=== PATIENT | female | born 1985 | race Caucasian/White ===

== ENCOUNTER 2016-10-06 19:44 | Emergency (ER) | payer OTHER ==
[2016-10-06] MEDS ORDERED: LORAZEPAM 0.5 MG TAB PO ONE ×2 (20:33→21:12)
[2016-10-06] MEDS ORDERED: LORAZEPAM 0.5 MG TAB ONE ×2 (20:35→21:23)
[2016-10-06 21:41] VITALS: TEMP 99.7
[2016-10-06 22:16] VITALS: BP 127/74; PULSE 79; RESP 16; O2SAT 95
== END 2016-10-06 21:58 | disposition home or self-care (01) ==
LOC: ED 19:44
DX: R00.2 Palpitations (principal); F41.9 Anxiety disorder, unspecified
CPT/HCPCS: 99283; 99284

== ENCOUNTER 2016-10-07 16:17 | Emergency (ER) | payer OTHER ==
[2016-10-07 16:28] VITALS: RESP 18; TEMP 98.7; O2SAT 97
[2016-10-07 17:15] VITALS: BP 118/65; PULSE 93
== END 2016-10-07 17:09 | disposition home or self-care (01) ==
LOC: ED 16:17
DX: F41.9 Anxiety disorder, unspecified (principal)
CPT/HCPCS: 99282

== ENCOUNTER 2016-11-21 15:37 | Emergency (ER) | payer OTHER ==
[2016-11-21 15:56] VITALS: TEMP 97.2
[2016-11-21 16:13] VITALS: BP 127/42; PULSE 72; RESP 20; O2SAT 98
== END 2016-11-21 16:21 | disposition home or self-care (01) ==
LOC: ED 15:37
DX: F41.9 Anxiety disorder, unspecified (principal)
CPT/HCPCS: 99283

== ENCOUNTER 2018-04-16 22:25 | Emergency (ER) | payer OTHER ==
[2018-04-16 22:41] VITALS: BP 121/74; PULSE 74; RESP 18; TEMP 96.8; O2SAT 99
[2018-04-16] MEDS ORDERED: LORAZEPAM 2 MG/ML SOL IM ONE (22:44)
[2018-04-16] MEDS ORDERED: LORAZEPAM 2 MG/ML SOL ONE (22:48)
== END 2018-04-16 23:10 | disposition home or self-care (01) ==
LOC: ED 22:25
DX: F41.0 Panic disorder [episodic paroxysmal anxiety] (principal)
CPT/HCPCS: 96372; 99282; 99283; J2060

== ENCOUNTER 2018-05-03 21:30 | Emergency (ER) | payer OTHER ==
[2018-05-03] MEDS: SODIUM CHLORIDE 0.9% FLUSH 10 ML SOL IV PRN ×2 (21:40→22:40)
[2018-05-03] MEDS ORDERED: NITROGLYCERIN 0.4 MG TAB SL PRN (21:40)
[2018-05-03] MEDS ORDERED: ASPIRIN 81 MG CHEWABLE CTB PO STA (21:40)
[2018-05-03 21:41] VITALS: RESP 20; TEMP 98.2
[2018-05-03 21:44] LABS: BASOPHILS % (AUTO) 1 % (0-3); EOSINOPHILS % (AUTO) 3 % (0-9); HEMATOCRIT 38 % (35-47); HEMOGLOBIN 12.6 gm/dl (12.0-15.5); LYMPHOCYTES % (AUTO) 29.6 % (10-50); MEAN CORPUSCULAR HEMOGLOBIN 29.5 pg (27.0-32.0); MEAN CORPUSCULAR HGB CONC 33.4 gm/dl (32.0-36.0); MEAN CORPUSCULAR VOLUME 88 fL (81-99); MONOCYTES % (AUTO) 6.6 % (0-12); NEUTROPHILS % (AUTO) 59.7 % (37-80)
[2018-05-03 22:00] LABS: BLOOD UREA NITROGEN 15 mg/dl (7-18); CALCIUM 8.6 mg/dl (8.5-10.1); CHLORIDE 103 mMol/L (98-107); CREATINE KINASE 98 U/L (26-192); CREATININE 0.87 mg/dl (0.60-1.00); GLUCOSE 91 mg/dl (74-106); SODIUM 138 mMol/L (136-145); TROP I < 0.017 ng/ml (0.000-0.056)
[2018-05-03 22:06] LABS: CARBON DIOXIDE 30.7 mEq/L (21-32); POTASSIUM 3.7 mMol/L (3.5-5.1)
[2018-05-03] MEDS ORDERED: KETOROLAC TROMETHAMINE 30 MG/ML SOL IV ONE (22:23)
[2018-05-03] MEDS ORDERED: ALUMINUM/MAGNESIUM 30 ML SUS PO ONE (22:23)
[2018-05-03] MEDS ORDERED: KETOROLAC TROMETHAMINE 30 MG/ML SOL ONE (22:31)
[2018-05-03] MEDS ORDERED: LIDOCAINE HCL 2% (VISCOUS) 20 ML SOL ONE (22:31)
[2018-05-03] MEDS ORDERED: ALUMINUM/MAGNESIUM 30 ML SUS ONE (22:31)
[2018-05-03 23:08] VITALS: O2SAT 97
[2018-05-03 23:21] VITALS: BP 121/55; PULSE 67
== END 2018-05-03 23:32 | disposition home or self-care (01) ==
LOC: ED 21:30
DX: R07.89 Other chest pain (principal)
CPT/HCPCS: 80048; 82550; 84484; 85025; 93005; 96374; 99284; 99285; J1885; A9270-GY

== ENCOUNTER 2019-03-14 14:50 | Emergency (ER) | payer OTHER ==
[2019-03-14] MEDS ORDERED: SODIUM CHLORIDE 0.9% 1000ML 1,000 ML IV ONE (15:28)
[2019-03-14] MEDS ORDERED: ONDANSETRON HCL 4 MG/2 ML SOL IV ONE ×2 (15:28→20:21)
[2019-03-14] MEDS ORDERED: KETOROLAC TROMETHAMINE 30 MG/ML SOL IV ONE (15:29)
[2019-03-14] MEDS ORDERED: ONDANSETRON HCL 4 MG/2 ML SOL ONE ×2 (15:39→20:26)
[2019-03-14 15:45] LABS: HEMATOCRIT 40 % (35-47); HEMOGLOBIN 13.1 gm/dl (12.0-15.5); MEAN CORPUSCULAR HEMOGLOBIN 28.3 pg (27.0-32.0); MEAN CORPUSCULAR HGB CONC 32.4 gm/dl (32.0-36.0); MEAN CORPUSCULAR VOLUME 87 fL (81-99)
[2019-03-14 15:48] LABS: APPEARANCE,URINE Clear; BILIRUBIN,URINE NEGATIVE (NEGATIVE); COLOR,URINE Dark yellow; GLUCOSE, URINE (UA) NEGATIVE (NEGATIVE); KETONES,URINE NEGATIVE (NEGATIVE); LEUKOCYTE ESTERASE ,URINE NEGATIVE (NEGATIVE); NITRATE,URINE NEGATIVE (NEGATIVE); OCCULT BLOOD,URINE NEGATIVE (NEG-TRACE); PH,URINE 7.5; UROBILINOGEN,URINE 0.2 (0.2-1.0 EU)
[2019-03-14 15:51] LABS: ALBUMIN 3.7 gm/dl (3.4-5.0); BILIRUBIN,TOTAL 0.7 mg/dl (0.2-1.0); CALCIUM 8.7 mg/dl (8.5-10.1); CARBON DIOXIDE 26.8 mEq/L (21-32); CREATININE 0.94 mg/dl (0.60-1.00); POTASSIUM 4.2 mMol/L (3.5-5.1); TOTAL PROTEIN 7.1 gm/dl (6.4-8.2)
[2019-03-14] MEDS ORDERED: KETOROLAC TROMETHAMINE 30 MG/ML SOL ONE (16:01)
[2019-03-14 16:04] LABS: BACTERIA 1+ (< 1+); CRYSTALS NEGATIVE (0-3 AVE/HPF); RBC,URINE 0-2 (0-3AV/HPF)
[2019-03-14 16:12] LABS: INFLUENZA A NEGATIVE (NEGATIVE); INFLUENZA B NEGATIVE (NEGATIVE)
[2019-03-14 16:13] LABS: BAND NEUTROPHILS % (MANUAL) 11 %; BASOPHILS % (MANUAL) 1 % (0-3); EOSINOPHILS % (MANUAL) 0 % (0-9); LYMPHOCYTES % (MANUAL) 5 % (10-50); MONOCYTES % (MANUAL) 1 % (0-12); NEUTROPHILS % (MANUAL) 82 % (37-80); NORMAL RBCS PRESENT
[2019-03-14 16:52] LABS: HEMOGLOBIN 11.8 gm/dl (12.0-15.5); MEAN CORPUSCULAR HEMOGLOBIN 28.7 pg (27.0-32.0); MEAN CORPUSCULAR HGB CONC 32.8 gm/dl (32.0-36.0)
[2019-03-14] MEDS ORDERED: CEFTRIAXONE 1 GM PDS 1 GM in SODIUM CHLORIDE 0.9% 50 ML 50 ML IV ONE (20:09)
[2019-03-14] MEDS ORDERED: CEFTRIAXONE 1 GM PDS ONE (20:11)
[2019-03-14] MEDS ORDERED: CLINDAMYCIN 150 MG/ML 900 MG in SODIUM CHLORIDE 0.9% 100 ML 100 ML IV ONE (20:17)
[2019-03-14] MEDS ORDERED: DEXAMETHASONE 20 MG/5 ML (4 MG/ML SOL) IV ONE (20:17)
[2019-03-14] MEDS ORDERED: DEXAMETHASONE 20 MG/5 ML (4 MG/ML SOL) ONE (20:20)
[2019-03-14] MEDS ORDERED: ACETAMINOPHEN 325 MG PO ONE (20:21)
[2019-03-14] MEDS ORDERED: ACETAMINOPHEN 500 MG 500 MG TAB ONE (20:26)
[2019-03-14] MEDS ORDERED: CLINDAMYCIN 150 MG/ML SOL ONE (21:00)
[2019-03-14 22:17] VITALS: BP 111/56; PULSE 90; RESP 20; TEMP 98.7; O2SAT 96
== END 2019-03-14 22:05 | disposition home or self-care (01) | DRG 153 ==
LOC: ED 14:50
DX: J36 Peritonsillar abscess (principal); R00.0 Tachycardia, unspecified; M54.5 Low back pain
CPT/HCPCS: 36415; 70491; 71045; 80053; 81001; 84703; 85007; 85027; 86308; 87040; 87430; 87804; 96365; 96366; 96374; 96375; 99285; 99291; J0696; J1100; J1885; J2405; J3490; Q9967